=== PATIENT | female | born 1950 | race Caucasian/White ===

== ENCOUNTER 2018-01-06 07:42 | Day surgery (SDC) | payer MEDICARE, BC ==
[2018-01-02 16:45] LABS: BASOPHILS # (AUTO) 0.1 X10'3 (0-0.2); BASOPHILS % (AUTO) 0.9 % (0-1); EOSINOPHILS # (AUTO) 0.2 X10'3 (0-0.9); EOSINOPHILS % (AUTO) 2.9 % (0-6); LYMPHOCYTES # (AUTO) 1.2 X10'3 (1.1-4.8); LYMPHOCYTES % (AUTO) 20.7 % (21-51); MEAN CORPUSCULAR HEMOGLOBIN 31.6 PG (27.0-31.0); MEAN CORPUSCULAR VOLUME 90.3 FL (78-98); MEAN PLATELET VOLUME 8.1 FL (7.4-10.4); MONOCYTES # (AUTO) 0.4 X10'3 (0-0.9); MONOCYTES % (AUTO) 7.3 % (2-12); NEUTROPHILS % (AUTO) 68.2 % (42-75); PRE OP HEMATOCRIT 39.4 % (35.0-45.0); PRE OP HEMOGLOBIN 13.8 g/dL (12.0-16.0); PRE OP PLATELET COUNT 237 X10'3 (140-440); RED BLOOD COUNT 4.36 X10'6 (4.20-5.60); RED CELL DISTRIBUTION WIDTH 13.6 % (11.5-14.5)
[2018-01-02 16:59] LABS: PRE OP PROTIME 10.2 SECONDS (9.0-12.0)
[2018-01-02 17:06] LABS: ALBUMIN 4.3 G/DL (3.4-5.0); ALBUMIN/GLOBULIN RATIO 1.2 (1.1-1.5); ALKALINE PHOSPHATASE 97 IU/L (46-116); BLOOD UREA NITROGEN 31 MG/DL (7-18); BUN/CREATININE RATIO 25.2 (6.6-38.0); CALCIUM 9.9 MG/DL (8.5-10.1); CHLORIDE 103 MMOL/L (99-107); CREATININE 1.23 MG/DL (0.40-0.90); PRE OP ALT 33 U/L (30-65); PRE OP ANION GAP 10 (8-16); PRE OP AST 22 U/L (10-37); PRE OP BILIRUB, TOTAL 0.6 MG/DL (0.0-1.0); PRE OP GLUCOSE 95 MG/DL (70-104); PRE OP POTASSIUM 3.8 MMOL/L (3.4-5.1); PRE OP SODIUM 141 MMOL/L (135-145); TOTAL CARBON DIOXIDE 27.6 MMOL/L (24-32); TOTAL PROTEIN 7.9 G/DL (6.4-8.2); eGFR 43 ML/MIN
[2018-01-06] VITALS (20 sets, daily range): BP systolic 99–138; BP diastolic 41–85
[~2018-01-06] VITALS: Ht 181 cm; Wt 96.0 kg
[~2018-01-06 07:42] MED LIST: CYCL1DRO EACHEYE; FLUOROMETHOLONE EACHEYE; PREMARIN CREAM VG; SERT50TA PO; THY60T PO; [UNRECOGNIZED DRUG - OTHER] PO; famotidine 20mg tablet PO ONE
[2018-01-06] MEDS ORDERED: WATER IV ONE (08:00)
[2018-01-06] MEDS ORDERED: cefoxitin sod inj 2,000 MG in dextrose 5%-water 50ml 50 ML IV ONE (08:00)
[2018-01-06] MEDS ORDERED: DEXTROSE 5% IV ONE (08:00)
[2018-01-06] MEDS ORDERED: clindamycin-Cleocin 900mg/D5W 50 ML IV ONE (08:00)
[2018-01-06] MEDS ORDERED: GENTAMICIN IV ONE (08:00)
[2018-01-06] MEDS ORDERED: LIDOcaine 1% (10mg/ml) 2ml vial ONE (08:03)
[2018-01-06] MEDS: ringers solution, lacted 1,000 ML IV SCH ×6 (08:23→23:09)
[2018-01-06] MEDS ORDERED: ringers solution, lacted 1,000 ML IV SCH (09:09)
[2018-01-06] MEDS ORDERED: ondansetron/PF 4mg/2ml inj IV PRN ×2 (09:10→10:55)
[2018-01-06] MEDS ORDERED: morphine 4 MG/ML inj SYRINge IV PRN ×2 (09:10)
[2018-01-06] MEDS ORDERED: meperidine/PF 50mg/ml syringe IV PRN ×3 (09:10)
[2018-01-06] MEDS ORDERED: proCHLORperazine 10 MG/2 ml inj IV PRN (09:10)
[2018-01-06] MEDS ORDERED: clindamycin phosphate 40gm vag cream ONE (09:16)
[2018-01-06] MEDS ORDERED: vasoPRESSIN 20 units/ml inj. ONE (09:16)
[2018-01-06] MEDS ORDERED: ceFAZolin 1000mg inj ONE (09:16)
[2018-01-06 09:34] LABS: CLARITY,URINE SLIGHTLY CLOUDY (Clear); COLOR,URINE YELLOW (Yellow); GLUCOSE, URINE NEGATIVE (Neg); KETONES,URINE NEGATIVE (Neg); LEUKOCYTE ESTERASE ,URINE TRACE (Neg); NITRITES, URINE NEGATIVE (Neg); OCCULT BLOOD,URINE NEGATIVE (Neg); PH,URINE 5.5 (4.8-8.0); PROTEIN,URINE NEGATIVE (Neg); UROBILINOGEN,URINE 0.2 E.U/dL (0.2-1.0)
[2018-01-06 09:43] LABS: BACTERIA,URINE 4+ /HPF (Neg); MUCUS STRANDS NONE SEEN /LPF (Neg); RBC,URINE 0-2 /HPF (0-2); SQUAMOUS EPITHELIAL CELL,UR FEW /LPF (FEW)
[2018-01-06] MEDS ORDERED: sevoflurane 250ml liquid IH ONE (09:50)
[2018-01-06 09:59] LABS: UA COLLECTION TYPE VOIDED
[2018-01-06] MEDS ORDERED: propofol inj 20 ML IV ONE (09:59)
[2018-01-06] MEDS ORDERED: fentaNYL/PF 50MCG/1 ML 2ML syringe ONE (09:59)
[2018-01-06] MEDS ORDERED: midazolam 2 mg/2 ml injection ONE (09:59)
[2018-01-06] MEDS ORDERED: LIDOcaine 2% (20mg/ml) 5ml vial ONE (10:00)
[2018-01-06] MEDS ORDERED: temazepam 15mg capsule PO PRN (10:55)
[2018-01-06] MEDS ORDERED: CADD PCA waste documentation MC PRN (10:55)
[2018-01-06] MEDS ORDERED: ketorolac tromethamine 15mg/ml inj. IV PRN (10:55)
[2018-01-06] MEDS ORDERED: normal saline 500ml IV soln 500 ML IV PRN (10:55)
[2018-01-06] MEDS ORDERED: HYDROcodone/acetaminophen 5mg/325mg tablet PO PRN ×2 (10:55)
[2018-01-06] MEDS ORDERED: diphenhydrAMINE 50 mg/ml inj IV PRN (10:55)
[2018-01-06] MEDS ORDERED: magnesium hydroxide 30ml (MOM) UD suspension PO PRN (10:55)
[2018-01-06] MEDS ORDERED: naloxone 0.4 mg/ml inj IV PRN (10:55)
[2018-01-06] MEDS: HYDROmorphone/NS 1 mg/ml CADD 50 ML IV SCH ×7 (11:00→23:00)
[2018-01-06] MEDS ORDERED: acetaminophen 1,000mg/100ml IV 100 ML IV ONE (11:40)
[2018-01-06] MEDS: simethicone 80mg chew tab PO SCH ×2 (13:00→18:12)
[2018-01-06] MEDS: docusate sod 100mg capsule PO SCH (20:36)
[2018-01-06] MEDS ORDERED: thyroid, pork 30mg tablet PO SCH (21:00)
[2018-01-07 00:10] VITALS: BP 100/50
[2018-01-07] MEDS: HYDROmorphone/NS 1 mg/ml CADD 50 ML IV SCH ×6 (01:00→11:00)
[2018-01-07] MEDS: ringers solution, lacted 1,000 ML IV SCH (04:53)
[2018-01-07 05:13] LABS: BASOPHILS % (AUTO) 0.2 % (0-1); EOSINOPHILS # (AUTO) 0.2 X10'3 (0-0.9); EOSINOPHILS % (AUTO) 1.8 % (0-6); HEMATOCRIT 32.4 % (35.0-45.0); HEMOGLOBIN 11.4 g/dl (12.0-16.0); LYMPHOCYTES # (AUTO) 0.9 X10'3 (1.1-4.8); LYMPHOCYTES % (AUTO) 9.7 % (21-51); MEAN CORPUSCULAR HEMOGLOBIN 31.9 PG (27.0-31.0); MEAN CORPUSCULAR HGB CONC 35.1 % (33.0-36.5); MEAN CORPUSCULAR VOLUME 90.9 FL (78-98); MEAN PLATELET VOLUME 8.6 FL (7.4-10.4); MONOCYTES # (AUTO) 0.6 X10'3 (0-0.9); MONOCYTES % (AUTO) 6.2 % (2-12); NEUTROPHILS # (AUTO) 7.5 X10'3 (1.8-7.7); NEUTROPHILS % (AUTO) 82.1 % (42-75); PLATELET COUNT 184 X10'3 (140-440); RED BLOOD COUNT 3.57 X10'6 (4.20-5.60); RED CELL DISTRIBUTION WIDTH 13.1 % (11.5-14.5); WHITE BLOOD COUNT 9.1 X10'3 (4.5-11.0)
[2018-01-07 07:00] VITALS: BP 101/49
[2018-01-07] MEDS ORDERED: cycloSPORINE 0.05% ophthalmic emulsion EACHEYE SCH (08:00)
[2018-01-07] MEDS ORDERED: sertraline 50mg tablet PO SCH (08:00)
[2018-01-07] MEDS ORDERED: thyroid, pork 30mg tablet PO SCH (08:00)
[2018-01-07] MEDS ORDERED: fluorometholone 0.1% ophthalmic suspension 5ml bottle EACHEYE SCH (08:00)
[2018-01-07 11:00] VITALS: BP 101/59
[2018-01-07] MEDS: simethicone 80mg chew tab PO SCH ×2 (11:05→15:22)
[2018-01-07] MEDS: docusate sod 100mg capsule PO SCH (11:05)
== END 2018-01-07 17:14 | disposition home or self-care (01) ==
LOC: PAS 07:42 → SUR 3N 13:11 → PAS 01-07 17:14
PROVIDERS: ATTEND Specialist
DX: N89.8 Other specified noninflammatory disorders of vagina (principal); N81.11 Cystocele, midline; N39.46 Mixed incontinence; K21.9 Gastro-esophageal reflux disease without esophagitis; Z85.820 Personal history of malignant melanoma of skin; Z88.2 Allergy status to sulfonamides; Z79.899 Other long term (current) drug therapy; Z98.890 Other specified postprocedural states
CPT/HCPCS: 36415; 51992; 57240; 80053; 81001; 85025; 85610; 85730; 87088; 87186; A4315; A4355; C1771; J0131; J0690; J0694; J1170; J2001; J2250; J2704; J3010; J3490; J7030; J7060; J7120; 87077; A6250; A7000; J1580

== ENCOUNTER 2019-09-24 14:54 | Emergency (ER) | payer MEDICARE, BC ==
[~2019-09-24] VITALS: Ht 180.3 cm; Wt 92.3 kg
[~2019-09-24 14:54] MED LIST changes: -PREMARIN CREAM VG; -famotidine 20mg tablet PO ONE
[2019-09-24 15:21] LABS: BASOPHILS % (AUTO) 0.7 % (0-1); EOSINOPHILS # (AUTO) 0.4 X10'3 (0-0.9); EOSINOPHILS % (AUTO) 7.2 % (0-6); HEMATOCRIT 37.9 % (35.0-45.0); HEMOGLOBIN 13.1 g/dl (12.0-16.0); LYMPHOCYTES # (AUTO) 0.8 X10'3 (1.1-4.8); LYMPHOCYTES % (AUTO) 15.1 % (21-51); MEAN CORPUSCULAR HEMOGLOBIN 31.8 PG (27.0-31.0); MEAN CORPUSCULAR HGB CONC 34.7 g/dL (33.0-36.5); MEAN CORPUSCULAR VOLUME 91.6 FL (78-98); MEAN PLATELET VOLUME 8.7 FL (7.4-10.4); MONOCYTES # (AUTO) 0.4 X10'3 (0-0.9); MONOCYTES % (AUTO) 7.9 % (2-12); NEUTROPHILS # (AUTO) 3.5 X10'3 (1.8-7.7); NEUTROPHILS % (AUTO) 69.1 % (42-75); PLATELET COUNT 191 X10'3 (140-440); RED BLOOD COUNT 4.14 X10'6 (4.20-5.60); RED CELL DISTRIBUTION WIDTH 13.5 % (11.5-14.5); WHITE BLOOD COUNT 5.1 X10'3 (4.5-11.0)
[2019-09-24 15:31] LABS: ALANINE AMINOTRANSFERASE 28 U/L (12-78); ALBUMIN 4.2 G/DL (3.4-5.0); ALBUMIN/GLOBULIN RATIO 1.5 (1.1-1.5); ALKALINE PHOSPHATASE 99 IU/L (46-116); AMYLASE 43 U/L (25-115); ANION GAP 6 (8-16); ASPARTATE AMINO TRANSFERASE 24 U/L (10-37); BILIRUBIN,TOTAL 0.7 MG/DL (0.1-1.0); BLOOD UREA NITROGEN 20 MG/DL (7-18); BUN/CREATININE RATIO 19.8 (6.6-38.0); CALCIUM 9.8 MG/DL (8.5-10.1); CHLORIDE 108 MMOL/L (99-107); CREATININE 1.01 MG/DL (0.40-0.90); GLUCOSE 96 MG/DL (70-104); LIPASE 113 U/L (73-393); SODIUM 142 MMOL/L (135-145); TOTAL CARBON DIOXIDE 27.8 MMOL/L (24-32); eGFR 54 ML/MIN
--- NOTE | 2019-09-24 16:13 | NUR ---
PT OUT TO CAT SCAN
[2019-09-24 16:19] LABS: CLARITY,URINE CLOUDY (Clear); COLOR,URINE YELLOW (Yellow); GLUCOSE, URINE NEGATIVE (Neg); KETONES,URINE NEGATIVE (Neg); LEUKOCYTE ESTERASE ,URINE TRACE (Neg); NITRITES, URINE NEGATIVE (Neg); OCCULT BLOOD,URINE NEGATIVE (Neg); PH,URINE 5.5 (4.8-8.0); PROTEIN,URINE NEGATIVE (Neg); UROBILINOGEN,URINE 0.2 E.U/dL (0.2-1.0)
[2019-09-24 16:20] LABS: UA COLLECTION TYPE CLN CATCH MIDSTREAM
[2019-09-24 16:29] LABS: BACTERIA,URINE 1+ /HPF (Neg); RBC,URINE NONE SEEN /HPF (0-2); SQUAMOUS EPITHELIAL CELL,UR MODERATE /LPF (FEW); WBC,URINE 0-4 /HPF (0-4)
[2019-09-24 16:30] LABS: YEAST MODERATE /HPF (NEGATIVE)
[2019-09-24] MEDS ORDERED: ONDA4TAB12 PO (16:56)
[2019-09-24 17:02] VITALS: BP 122/66
== END 2019-09-24 17:05 | disposition home or self-care (01) ==
LOC: ER 14:54
DX: K52.9 Noninfective gastroenteritis and colitis, unspecified (principal); R10.11 Right upper quadrant pain; I48.91 Unspecified atrial fibrillation; Z90.49 Acquired absence of other specified parts of digestive tract; Z88.2 Allergy status to sulfonamides; Z79.899 Other long term (current) drug therapy
CPT/HCPCS: 36415; 74176; 80053; 81001; 82150; 83690; 85025; 87088; 99284